=== PATIENT | female | born 1955 | race Two or more races ===

== ENCOUNTER 2018-04-24 12:53 | Inpatient (IN) | payer OTHER ==
[~2018-04-24] VITALS: Ht 154.9 cm; Wt 83.7 kg
[~2018-04-24 12:53] MED LIST: AMLO5TAB4 PO; AZIT500T5 PO; CARV6.252 PO; CEFD300C37 PO; HYDR25TA6 PO; LISI40TA PO; METF500T17 PO
[2018-04-24] MEDS ORDERED: ASPIRIN 81 MG TABLET CHEW ONE (13:19)
--- NOTE | 2018-04-24 13:21 | NUR ---
PT PRESENTS TO ED CODE 250 WITH C/O LEFT SIDED CHEST PRESSURE, INTERIMTTENT X2 DAYS. +SOB, +DIZZINESS, +NAUSEA. PT REPORTS SHE HAS CHRONIC COUGH D/T HX "LUNG PROBLEM". EKG TAKEN ON ARRIVAL BY EDT. SPO2 80% ON ROOM AIR, OXYGEN APPLIED VIA NC AT 4L/MIN. ALL MONITORS IN PLACE. CALL LIGHT IN REACH. DAUGHTER AT BEDSIDE.
[2018-04-24] MEDS ORDERED: ASPIRIN 81 MG TABLET CHEW PO ONE (13:30)
[2018-04-24] MEDS ORDERED: SODIUM CHLORIDE FLUSH 10ML SYR IVF ONE (13:30)
--- NOTE | 2018-04-24 13:35 | NUR ---
REPORT RECEIVED FROM MIGUEL SORENSON. ASSUMED CARE OF PT. PT CURRENTLY RESTING ON GURNEY. NAD NOTED. SKIN PWD. RESP EVEN AND EQAUL. PT DENIES PAIN/NEEDS AT THIS TIME. PT ON CONT BP, CARDIAC AND O2 MONITORS. CALL LIGHT WITHIN REACH. WILL CONT TO MONITOR PT.
--- NOTE | 2018-04-24 13:35 | NUR ---
report given to primary RN Myah at bedside.
[2018-04-24 13:54] LABS: ALBUMIN 3.2 g/dL (3.4-5.0); ANION GAP 5 mmol/L (5-15); CALCIUM 8.6 mg/dL (8.5-10.1); CHLORIDE 103 mmol/L (98-107); CREATININE 0.59 mg/dL (0.55-1.02)
[2018-04-24 13:58] LABS: BASOPHILS # (AUTO) 0.05 x10^3/uL (0-0.1); BASOPHILS % (AUTO) 0 % (0-1); EOSINOPHILS # (AUTO) 0.05 x10^3/uL (0-0.4); EOSINOPHILS % (AUTO) 0 % (1-7); LYMPHOCYTES % (AUTO) 9 % (22-44); MD NO; MEAN CORPUSCULAR HEMOGLOBIN 25.7 pg (27.0-34.8); MEAN CORPUSCULAR VOLUME 82.9 fL (80-100); MEAN PLATELET VOLUME 9.5 fL (7.4-10.4); MONOCYTES # (AUTO) 1.23 x10^3/uL (0.2-0.8); MONOCYTES % (AUTO) 10 % (2-9); NEUTROPHILS # (AUTO) 9.95 x10^3/uL (1.8-6.8); NEUTROPHILS % (AUTO) 80 % (42-75); PLATELET COUNT 282 x10^3/uL (130-400); RED BLOOD COUNT 5.59 x10^6/uL (3.82-5.3); RED CELL DISTRIBUTION WIDTH 15.7 % (9.6-15.2)
--- NOTE | 2018-04-24 14:30 | NUR ---
PT CURRENTLY RESTING ON [employer]. NAD NOTED. PT AO X 4. SKIN PWD. RESP EVEN AND EQAUL. PT AWARE THAT WE ARE WAITING FOR IMAGING RESULTS. PT CURRENTLY DENIES PAIN/NEEDS AT THIS TIME. CALL LIGHT WITHIN REACH. WILL CONT TO MONITOR PT.
[2018-04-24] MEDS ORDERED: OMNIPAQUE 350 MG/ML, 100ML BOTTLE ONE (14:54)
[2018-04-24] MEDS ORDERED: ATOR-2 PO (14:58)
--- NOTE | 2018-04-24 15:41 | NUR ---
PT CURRENTLY RESTING ON GURNEY. NAD NOTED. PT AO X 4. SKIN PWD. RESP EVEN AND EQAUL. PT ABLE TO SPEAK IN FULL 5-7 WORD SENTENCES W/O DIFFICULTY. PT ON CONT BP, CARDIAC AND O2 MONITORS. CALL LIGHT WITHIN REACH. WILL CONT TO MONITOR PT.
[2018-04-24] MEDS ORDERED: FUROSEMIDE 40 MG/4 ML ONE (15:53)
[2018-04-24] MEDS ORDERED: NITROGLYCERIN OINT 2%, 1GM TP ONE ×2 (15:53→16:00)
[2018-04-24] MEDS ORDERED: FUROSEMIDE 40 MG/4 ML IVPush ONE (16:00)
--- NOTE | 2018-04-24 16:11 | NUR ---
PT UP TO RESTROOM. STEADY UPON AMBULATION. PT BACK IN [facility]. PT DENIES PAIN/NEEDS AT THIS TIME. PAMELA FUNG AWARE OF PT'S HTN, WILL WAIT TO SEE IF NITRO HELPS BP PER PAMLEA KIM. PT ON CONT BP, CARDIAC AND O2 MONITORS. CALL LIGHT WITHIN REACH. WILL CONT TO MONITOR PT.
--- NOTE | 2018-04-24 16:45 | NUR ---
BREAK RN NOTE: REPORT TAKEN FROM MIGUEL KNUTSON. PT ASSISTED TO BATHROOM TO VOID, NOW BACK IN BED AND PLACED ON ALL MONITORS. NSR ON PACKER INSULATION. CALL LIGHT IN REACH. AWAITING CARDIAC TELE BED ASSIGNMENT AND TRANSPORT AT THIS TIME.
--- NOTE | 2018-04-24 17:09 | NUR ---
report given to MIGUEL Ulloa. pt awaiting transport to cardiac tele.
[2018-04-24 17:29] VITALS: BP 157/90
[2018-04-24 17:32] LABS: CHOLESTEROL, TOTAL 147 mg/dL (140-239); TRIGLYCERIDES 99 mg/dL (50-200); VLDL CHOLESTEROL 20 mg/dL (0-25)
[2018-04-24 17:35] LABS: CHOL/HDL RATIO 3.5; HDL CHOL % 29 % (28-40); HDL CHOLESTEROL (DIRECT) 42 mg/dL (40-60); LDL CHOLESTEROL,CALCULATED 85 mg/dL (54-169); TROPONIN I 0.034 ng/mL (0.000-0.045)
[2018-04-24 18:28] LABS: HEMOGLOBIN A1C 7.6 % (4.2-6.3)
[2018-04-24 19:35] VITALS: BP 178/89
[2018-04-24] MEDS ORDERED: HYDROCHLOROTHIAZIDE 25 MG TABLET ONE (20:44)
[2018-04-24] MEDS: ACETAMINOPHEN 325 MG TABLET PO PRN (20:53)
[2018-04-24] MEDS: CARVEDILOL 6.25 MG TABLET PO SCH (20:54)
[2018-04-24] MEDS: ATORVASTATIN 80 MG TABLET PO SCH (20:54)
[2018-04-24] MEDS: ENOXAPARIN 40 MG/0.4 ML SQ SCH (20:55)
[2018-04-24 20:56] LABS: TROPONIN I 0.029 ng/mL (0.000-0.045)
[2018-04-24] MEDS ORDERED: HYDROCHLOROTHIAZIDE 25 MG TABLET PO ONE (21:00)
[2018-04-24] MEDS: INSULIN LISPRO 100 UNITS/ML, PEN SQ-INSULIN SCH (21:00)
[2018-04-25 01:09] VITALS: BP 176/103
[2018-04-25 01:31] LABS: TROPONIN I 0.025 ng/mL (0.000-0.045)
[2018-04-25] MEDS ORDERED: hydrALAzine 20 MG/ML, 1ML ONE (01:49)
[2018-04-25] MEDS: hydrALAzine 20 MG/ML, 1ML IV PRN ×2 (02:08→06:37)
[2018-04-25 03:48] VITALS: BP 161/88
[2018-04-25 05:37] LABS: BASOPHILS # (AUTO) 0.04 x10^3/uL (0-0.1); BASOPHILS % (AUTO) 0 % (0-1); EOSINOPHILS # (AUTO) 0.05 x10^3/uL (0-0.4); EOSINOPHILS % (AUTO) 0 % (1-7); LYMPHOCYTES % (AUTO) 6 % (22-44); MD NO; MEAN CORPUSCULAR HEMOGLOBIN 26.9 pg (27.0-34.8); MEAN CORPUSCULAR HGB CONC 31.9 g/dL (32.4-35.8); MEAN PLATELET VOLUME 9.5 fL (7.4-10.4); MONOCYTES # (AUTO) 1.15 x10^3/uL (0.2-0.8); MONOCYTES % (AUTO) 9 % (2-9); NEUTROPHILS # (AUTO) 10.37 x10^3/uL (1.8-6.8); NEUTROPHILS % (AUTO) 84 % (42-75); PLATELET COUNT 251 x10^3/uL (130-400); RED BLOOD COUNT 5.81 x10^6/uL (3.82-5.3); RED CELL DISTRIBUTION WIDTH 15.4 % (9.6-15.2)
[2018-04-25 05:41] LABS: CHLORIDE 99 mmol/L (98-107)
[2018-04-25 05:55] LABS: ANION GAP 4 mmol/L (5-15); CALCIUM 8.7 mg/dL (8.5-10.1); CREATININE 0.58 mg/dL (0.55-1.02)
[2018-04-25 06:20] VITALS: BP 188/92
[2018-04-25] MEDS ORDERED: POTASSIUM CHLORIDE 20 MEQ TAB.ER.PRT PO ONE ×2 (06:30→22:30)
[2018-04-25] MEDS: ASPIRIN 325 MG TABLET PO SCH (06:36)
[2018-04-25] MEDS: INSULIN LISPRO 100 UNITS/ML, PEN SQ-INSULIN SCH ×4 (07:00→21:31)
[2018-04-25] MEDS ORDERED: AMLODIPINE 5 MG TABLET PO SCH (09:00)
[2018-04-25] MEDS ORDERED: HYDROCHLOROTHIAZIDE 25 MG TABLET PO SCH (09:00)
[2018-04-25 09:04] VITALS: BP 174/90
[2018-04-25] MEDS: CARVEDILOL 6.25 MG TABLET PO SCH ×2 (09:13→21:31)
[2018-04-25] MEDS: AMLODIPINE 5 MG TABLET PO SCH (09:14)
[2018-04-25 13:24] VITALS: BP 121/62
[2018-04-25 19:00] VITALS: BP 162/82
[2018-04-25] MEDS: ENOXAPARIN 40 MG/0.4 ML SQ SCH (21:31)
[2018-04-25] MEDS: ATORVASTATIN 80 MG TABLET PO SCH (21:31)
[2018-04-25] MEDS: LOSARTAN 25MG TABLET PO SCH (23:49)
[2018-04-25] MEDS: FUROSEMIDE 20 MG/2 ML IV SCH (23:49)
[2018-04-26] VITALS (7 sets, daily range): BP systolic 127–179; BP diastolic 68–102
[2018-04-26] MEDS: ASPIRIN 325 MG TABLET PO SCH (05:32)
[2018-04-26] MEDS: INSULIN LISPRO 100 UNITS/ML, PEN SQ-INSULIN SCH ×4 (07:00→20:07)
[2018-04-26 07:29] LABS: ANION GAP 2 mmol/L (5-15); CALCIUM 8.7 mg/dL (8.5-10.1); CHLORIDE 99 mmol/L (98-107); CREATININE 0.68 mg/dL (0.55-1.02)
[2018-04-26] MEDS ORDERED: REGADENOSON 0.4 MG/5 ML SYRINGE ONE (09:14)
[2018-04-26] MEDS: CARVEDILOL 6.25 MG TABLET PO SCH ×2 (12:10→20:06)
[2018-04-26] MEDS: LOSARTAN 25MG TABLET PO SCH ×2 (12:10→20:05)
[2018-04-26] MEDS: AMLODIPINE 5 MG TABLET PO SCH (12:12)
[2018-04-26] MEDS: FUROSEMIDE 20 MG/2 ML IV SCH ×2 (12:13→16:36)
[2018-04-26] MEDS ORDERED: POTASSIUM CHLORIDE 20 MEQ TAB.ER.PRT PO ONE (16:00)
[2018-04-26] MEDS ORDERED: GUAIFENESIN 200 MG TABLET PO PRN (16:00)
[2018-04-26] MEDS: ENOXAPARIN 40 MG/0.4 ML SQ SCH (20:05)
[2018-04-26] MEDS: ATORVASTATIN 80 MG TABLET PO SCH (20:06)
[2018-04-26] MEDS: hydrALAzine 20 MG/ML, 1ML IV PRN (21:18)
[2018-04-26] MEDS ORDERED: ALBUTEROL/IPRATROPIUM 2.5MG/0.5MG, 3 ML ONE (23:05)
[2018-04-26] MEDS ORDERED: FUROSEMIDE 40 MG/4 ML IV ONE (23:30)
[2018-04-26] MEDS ORDERED: ALBUTEROL/IPRATROPIUM 2.5MG/0.5MG, 3 ML NPPB PRN (23:30)
[2018-04-27] MEDS ORDERED: CEFTRIAXONE PMX 1GM/50ML 50 ML IV SCH (01:00)
[2018-04-27] MEDS ORDERED: DOXYCYCLINE 100 MG in DEXTROSE 5% 250 ML IV SCH (01:00)
[2018-04-27 01:23] VITALS: BP 158/91
[2018-04-27 01:24] LABS: BASOPHILS # (AUTO) 0.04 x10^3/uL (0-0.1); BASOPHILS % (AUTO) 0 % (0-1); EOSINOPHILS # (AUTO) 0.02 x10^3/uL (0-0.4); EOSINOPHILS % (AUTO) 0 % (1-7); LYMPHOCYTES # (AUTO) 0.61 x10^3/uL (1-3.4); LYMPHOCYTES % (AUTO) 5 % (22-44); MD NO; MEAN CORPUSCULAR HEMOGLOBIN 26.4 pg (27.0-34.8); MEAN CORPUSCULAR HGB CONC 31.7 g/dL (32.4-35.8); MEAN CORPUSCULAR VOLUME 83.2 fL (80-100); MEAN PLATELET VOLUME 9.4 fL (7.4-10.4); MONOCYTES % (AUTO) 7 % (2-9); NEUTROPHILS % (AUTO) 88 % (42-75); PLATELET COUNT 281 x10^3/uL (130-400); RED BLOOD COUNT 6.01 x10^6/uL (3.82-5.3); RED CELL DISTRIBUTION WIDTH 15.6 % (9.6-15.2)
[2018-04-27 01:35] LABS: ALBUMIN 3.3 g/dL (3.4-5.0); ANION GAP 5 mmol/L (5-15); CALCIUM 8.9 mg/dL (8.5-10.1); CHLORIDE 94 mmol/L (98-107)
[2018-04-27] MEDS: hydrALAzine 20 MG/ML, 1ML IV PRN (04:49)
[2018-04-27] MEDS: ASPIRIN 325 MG TABLET PO SCH (04:49)
[2018-04-27 06:48] VITALS: BP 148/73
[2018-04-27] MEDS: INSULIN LISPRO 100 UNITS/ML, PEN SQ-INSULIN SCH ×3 (07:00→23:17)
[2018-04-27] MEDS ORDERED: PIPERACILLIN/TAZO/PMX 3.375GM 50 ML IV SCH (08:00)
[2018-04-27] MEDS: AMLODIPINE 5 MG TABLET PO SCH (09:00)
[2018-04-27] MEDS: CARVEDILOL 6.25 MG TABLET PO SCH ×2 (09:00→19:40)
[2018-04-27] MEDS: LOSARTAN 25MG TABLET PO SCH ×2 (09:00→19:40)
[2018-04-27] MEDS: FUROSEMIDE 20 MG/2 ML IV SCH ×2 (09:07→16:48)
[2018-04-27] MEDS ORDERED: PROPOFOL 100 ML IV ONE (09:32)
[2018-04-27] MEDS ORDERED: BISACODYL 10 MG SUPP PR PRN (10:30)
[2018-04-27] MEDS ORDERED: SENNA/DOCUSATE TABLET NG PRN (10:30)
[2018-04-27] MEDS ORDERED: LIDOCAINE-MPF 1%, 2ML ENDO PRN (10:30)
[2018-04-27] MEDS ORDERED: PHARMACY MAY ADJ FOR RENAL FX MC SCH (10:30)
[2018-04-27] MEDS ORDERED: LACTULOSE 20 GM/30 ML UDC NG PRN (10:30)
[2018-04-27] MEDS ORDERED: SENNOSIDES 8.8 MG/5 ML ORAL SOL NG PRN (10:30)
[2018-04-27] MEDS: FAMOTIDINE 20 MG/2 ML IV SCH ×2 (10:30→22:17)
[2018-04-27] MEDS ORDERED: NOREPINEPHRINE 4 MG in SODIUM CHLORIDE 0.9% 246 ML IV PRN (11:00)
[2018-04-27] MEDS ORDERED: ALBUTEROL/IPRATROPIUM 2.5MG/0.5MG, 3 ML INLINE PRN (12:00)
[2018-04-27] MEDS: PROPOFOL 100 ML IV PRN ×2 (14:26→20:13)
[2018-04-27] MEDS: AMPICILLIN/SULBACTAM 3 GM in SODIUM CHLORIDE 0.9% 100 ML IV SCH ×2 (14:26→20:13)
[2018-04-27 15:16] LABS: TROPONIN I 0.041 ng/mL (0.000-0.045)
[2018-04-27] MEDS: ALBUTEROL/IPRATROPIUM 2.5MG/0.5MG, 3 ML INLINE SCH ×3 (15:20→22:26)
[2018-04-27] MEDS ORDERED: MIDAZOLAM 1 MG/ML, 5ML ONE (17:10)
[2018-04-27] MEDS ORDERED: SUCCINYLCHOLINE 20 MG/ML, 10ML ONE (17:10)
[2018-04-27] MEDS: ACETAMINOPHEN 325 MG TABLET PO PRN (17:52)
[2018-04-27] MEDS: ATORVASTATIN 80 MG TABLET PO SCH (20:14)
[2018-04-27] MEDS: ENOXAPARIN 40 MG/0.4 ML SQ SCH (20:14)
[2018-04-27] MEDS ORDERED: DOCUSATE 50 MG/5 ML, 10ML UDC NG PRN (21:00)
[2018-04-27 21:18] LABS: ALBUMIN 2.7 g/dL (3.4-5.0); ANION GAP 7 mmol/L (5-15); CALCIUM 8.3 mg/dL (8.5-10.1); CHLORIDE 98 mmol/L (98-107)
[2018-04-27 21:22] LABS: ALANINE AMINOTRANSFERASE 15 U/L (12-78); ALKALINE PHOSPHATASE 92 U/L (45-117); BILIRUBIN,TOTAL 1.5 mg/dL (0.2-1.0); CREATININE 1.44 mg/dL (0.55-1.02); TOTAL PROTEIN 6.3 g/dL (6.4-8.2)
[2018-04-27] MEDS ORDERED: POTASSIUM CHLORIDE PMX 100 ML IV ONE (22:00)
[2018-04-27] MEDS ORDERED: MAGNESIUM SULFATE 3 GM in SODIUM CHLORIDE 0.9% 100 ML IV ONE (22:00)
[2018-04-28] MEDS: AMPICILLIN/SULBACTAM 3 GM in SODIUM CHLORIDE 0.9% 100 ML IV SCH ×4 (02:03→21:06)
[2018-04-28] MEDS: ALBUTEROL/IPRATROPIUM 2.5MG/0.5MG, 3 ML INLINE SCH ×6 (02:08→22:30)
[2018-04-28] MEDS: PROPOFOL 100 ML IV PRN ×3 (03:24→23:15)
[2018-04-28 04:00] VITALS: BP 118/58
[2018-04-28] MEDS: INSULIN LISPRO 100 UNITS/ML, PEN SQ-INSULIN SCH ×4 (05:00→22:06)
[2018-04-28 05:11] LABS: MEAN CORPUSCULAR HGB CONC 31.4 g/dL (32.4-35.8); MEAN CORPUSCULAR VOLUME 82.8 fL (80-100); MEAN PLATELET VOLUME 9.9 fL (7.4-10.4); PLATELET COUNT 253 x10^3/uL (130-400); RED BLOOD COUNT 5.46 x10^6/uL (3.82-5.3); RED CELL DISTRIBUTION WIDTH 15.9 % (9.6-15.2)
[2018-04-28 05:18] LABS: ALANINE AMINOTRANSFERASE 15 U/L (12-78); ALBUMIN 2.5 g/dL (3.4-5.0); ANION GAP 8 mmol/L (5-15); CALCIUM 8.6 mg/dL (8.5-10.1); CHLORIDE 98 mmol/L (98-107)
[2018-04-28 05:21] LABS: ALKALINE PHOSPHATASE 92 U/L (45-117); BILIRUBIN,TOTAL 1.4 mg/dL (0.2-1.0); CREATININE 1.28 mg/dL (0.55-1.02); TOTAL PROTEIN 6.1 g/dL (6.4-8.2)
[2018-04-28 05:47] LABS: BASOPHILS # (AUTO) 0.03 x10^3/uL (0-0.1); BASOPHILS % (AUTO) 0 % (0-1); EOSINOPHILS # (AUTO) 0.02 x10^3/uL (0-0.4); EOSINOPHILS % (AUTO) 0 % (1-7); LYMPHOCYTES # (AUTO) 1.68 x10^3/uL (1-3.4); LYMPHOCYTES % (AUTO) 14 % (22-44); MD SCAN; MONOCYTES % (AUTO) 16 % (2-9); NEUTROPHILS # (AUTO) 8.23 x10^3/uL (1.8-6.8); NEUTROPHILS % (AUTO) 69 % (42-75)
[2018-04-28] MEDS: ASPIRIN 325 MG TABLET PO SCH (06:11)
[2018-04-28] MEDS: FAMOTIDINE 20 MG/2 ML IV SCH ×2 (08:19→19:42)
[2018-04-28] MEDS: FUROSEMIDE 20 MG/2 ML IV SCH ×2 (08:19→17:15)
[2018-04-28] MEDS: CARVEDILOL 6.25 MG TABLET PO SCH ×2 (08:19→19:42)
[2018-04-28] MEDS: LOSARTAN 25MG TABLET PO SCH ×2 (08:20→19:42)
[2018-04-28] MEDS: ATORVASTATIN 80 MG TABLET PO SCH (19:42)
[2018-04-28] MEDS: ENOXAPARIN 40 MG/0.4 ML SQ SCH (19:43)
[2018-04-29] MEDS: ALBUTEROL/IPRATROPIUM 2.5MG/0.5MG, 3 ML INLINE SCH ×6 (02:13→22:30)
[2018-04-29] MEDS: AMPICILLIN/SULBACTAM 3 GM in SODIUM CHLORIDE 0.9% 100 ML IV SCH ×4 (03:05→22:05)
[2018-04-29 04:00] VITALS: BP 132/71
[2018-04-29] MEDS: INSULIN LISPRO 100 UNITS/ML, PEN SQ-INSULIN SCH ×4 (05:00→23:00)
[2018-04-29 05:21] LABS: BASOPHILS # (AUTO) 0.04 x10^3/uL (0-0.1); BASOPHILS % (AUTO) 0 % (0-1); EOSINOPHILS # (AUTO) 0.03 x10^3/uL (0-0.4); EOSINOPHILS % (AUTO) 0 % (1-7); LYMPHOCYTES # (AUTO) 1.57 x10^3/uL (1-3.4); LYMPHOCYTES % (AUTO) 13 % (22-44); MD NO; MEAN CORPUSCULAR HEMOGLOBIN 27.4 pg (27.0-34.8); MEAN CORPUSCULAR HGB CONC 32.5 g/dL (32.4-35.8); MEAN CORPUSCULAR VOLUME 84.2 fL (80-100); MEAN PLATELET VOLUME 9.7 fL (7.4-10.4); MONOCYTES # (AUTO) 1.38 x10^3/uL (0.2-0.8); MONOCYTES % (AUTO) 12 % (2-9); NEUTROPHILS # (AUTO) 8.73 x10^3/uL (1.8-6.8); NEUTROPHILS % (AUTO) 74 % (42-75); PLATELET COUNT 272 x10^3/uL (130-400); RED BLOOD COUNT 5.14 x10^6/uL (3.82-5.3); RED CELL DISTRIBUTION WIDTH 16.2 % (9.6-15.2)
[2018-04-29 05:33] LABS: ANION GAP 7 mmol/L (5-15); CALCIUM 8.5 mg/dL (8.5-10.1); CHLORIDE 102 mmol/L (98-107); CREATININE 0.93 mg/dL (0.55-1.02)
[2018-04-29] MEDS: ASPIRIN 325 MG TABLET PO SCH (06:02)
[2018-04-29] MEDS: FAMOTIDINE 20 MG/2 ML IV SCH ×2 (07:44→20:14)
[2018-04-29] MEDS: FUROSEMIDE 20 MG/2 ML IV SCH ×2 (07:44→16:31)
[2018-04-29] MEDS: POTASSIUM CHLORIDE 10% 40 MEQ/30 ML UDC PO SCH ×2 (07:45→20:13)
[2018-04-29] MEDS: LOSARTAN 25MG TABLET PO SCH ×2 (07:45→20:14)
[2018-04-29] MEDS: CARVEDILOL 6.25 MG TABLET PO SCH ×2 (07:46→20:14)
--- NOTE | 2018-04-29 11:12 | NUR ---
TF GOAL: w/ propofol: VITAL HIGH PROTEIN @ 45ML/HR off propofol: VITAL HIGH PROTEIN @ 50ML/HR
[2018-04-29] MEDS: FENTANYL PF 100 MCG/2ML IVPush PRN ×2 (13:42→20:14)
[2018-04-29] MEDS: ATORVASTATIN 80 MG TABLET PO SCH (20:13)
[2018-04-29] MEDS: ENOXAPARIN 40 MG/0.4 ML SQ SCH (20:15)
[2018-04-30] MEDS: ALBUTEROL/IPRATROPIUM 2.5MG/0.5MG, 3 ML INLINE SCH ×6 (02:30→22:30)
[2018-04-30] MEDS: AMPICILLIN/SULBACTAM 3 GM in SODIUM CHLORIDE 0.9% 100 ML IV SCH ×4 (03:26→22:18)
[2018-04-30 04:29] LABS: BASOPHILS # (AUTO) 0.05 x10^3/uL (0-0.1); BASOPHILS % (AUTO) 1 % (0-1); EOSINOPHILS # (AUTO) 0.09 x10^3/uL (0-0.4); EOSINOPHILS % (AUTO) 1 % (1-7); LYMPHOCYTES % (AUTO) 16 % (22-44); MD NO; MEAN CORPUSCULAR HEMOGLOBIN 27.8 pg (27.0-34.8); MEAN CORPUSCULAR HGB CONC 32.8 g/dL (32.4-35.8); MEAN CORPUSCULAR VOLUME 84.9 fL (80-100); MEAN PLATELET VOLUME 9.4 fL (7.4-10.4); MONOCYTES # (AUTO) 1.18 x10^3/uL (0.2-0.8); MONOCYTES % (AUTO) 11 % (2-9); NEUTROPHILS # (AUTO) 7.79 x10^3/uL (1.8-6.8); NEUTROPHILS % (AUTO) 72 % (42-75); PLATELET COUNT 274 x10^3/uL (130-400); RED BLOOD COUNT 4.87 x10^6/uL (3.82-5.3); RED CELL DISTRIBUTION WIDTH 16.4 % (9.6-15.2)
[2018-04-30] MEDS: ASPIRIN 325 MG TABLET PO SCH (04:40)
[2018-04-30 04:42] LABS: ANION GAP 6 mmol/L (5-15); CALCIUM 8.6 mg/dL (8.5-10.1); CHLORIDE 105 mmol/L (98-107); CREATININE 0.78 mg/dL (0.55-1.02); TRIGLYCERIDES 154 mg/dL (50-200)
[2018-04-30 05:00] VITALS: BP 155/80
[2018-04-30] MEDS: INSULIN LISPRO 100 UNITS/ML, PEN SQ-INSULIN SCH ×4 (05:00→22:31)
[2018-04-30] MEDS: POTASSIUM CHLORIDE 10% 40 MEQ/30 ML UDC PO SCH ×2 (07:44→22:18)
[2018-04-30] MEDS: FUROSEMIDE 20 MG/2 ML IV SCH ×2 (07:44→17:11)
[2018-04-30] MEDS: hydrALAzine 20 MG/ML, 1ML IV PRN (08:16)
[2018-04-30] MEDS: LOSARTAN 25MG TABLET PO SCH ×2 (09:04→22:19)
[2018-04-30] MEDS: FAMOTIDINE 20 MG/2 ML IV SCH ×2 (09:05→22:19)
[2018-04-30] MEDS: CARVEDILOL 6.25 MG TABLET PO SCH ×2 (09:05→22:19)
[2018-04-30] MEDS: ENOXAPARIN 40 MG/0.4 ML SQ SCH (22:18)
[2018-04-30] MEDS: ATORVASTATIN 80 MG TABLET PO SCH (22:19)
[2018-05-01] MEDS: ALBUTEROL/IPRATROPIUM 2.5MG/0.5MG, 3 ML INLINE SCH ×2 (02:18→06:30)
[2018-05-01] MEDS: FENTANYL PF 100 MCG/2ML IVPush PRN (03:44)
[2018-05-01] MEDS: AMPICILLIN/SULBACTAM 3 GM in SODIUM CHLORIDE 0.9% 100 ML IV SCH ×4 (03:44→20:45)
[2018-05-01 04:00] VITALS: BP 118/79
[2018-05-01] MEDS: ASPIRIN 325 MG TABLET PO SCH (06:08)
[2018-05-01 06:38] LABS: ANION GAP 5 mmol/L (5-15); CALCIUM 9.1 mg/dL (8.5-10.1); CHLORIDE 108 mmol/L (98-107)
[2018-05-01 06:39] LABS: BASOPHILS # (AUTO) 0.03 x10^3/uL (0-0.1); BASOPHILS % (AUTO) 0 % (0-1); EOSINOPHILS # (AUTO) 0.22 x10^3/uL (0-0.4); EOSINOPHILS % (AUTO) 2 % (1-7); LYMPHOCYTES # (AUTO) 1.73 x10^3/uL (1-3.4); LYMPHOCYTES % (AUTO) 18 % (22-44); MD NO; MEAN CORPUSCULAR HEMOGLOBIN 27.8 pg (27.0-34.8); MEAN CORPUSCULAR HGB CONC 32.6 g/dL (32.4-35.8); MEAN CORPUSCULAR VOLUME 85.3 fL (80-100); MEAN PLATELET VOLUME 9.8 fL (7.4-10.4); MONOCYTES # (AUTO) 1.09 x10^3/uL (0.2-0.8); MONOCYTES % (AUTO) 11 % (2-9); NEUTROPHILS # (AUTO) 6.77 x10^3/uL (1.8-6.8); NEUTROPHILS % (AUTO) 69 % (42-75); PLATELET COUNT 315 x10^3/uL (130-400); RED BLOOD COUNT 4.84 x10^6/uL (3.82-5.3); RED CELL DISTRIBUTION WIDTH 15.9 % (9.6-15.2)
[2018-05-01] MEDS: INSULIN LISPRO 100 UNITS/ML, PEN SQ-INSULIN SCH ×4 (06:44→23:00)
[2018-05-01] MEDS: FUROSEMIDE 20 MG/2 ML IV SCH ×2 (08:13→17:14)
[2018-05-01] MEDS: LOSARTAN 25MG TABLET PO SCH ×2 (09:25→20:44)
[2018-05-01] MEDS: POTASSIUM CHLORIDE 10% 40 MEQ/30 ML UDC PO SCH ×2 (09:25→20:44)
[2018-05-01] MEDS: CARVEDILOL 6.25 MG TABLET PO SCH (09:25)
[2018-05-01] MEDS: FAMOTIDINE 20 MG/2 ML IV SCH ×2 (09:25→20:44)
[2018-05-01] MEDS: METOPROLOL TARTRATE 25 MG TABLET PO SCH ×2 (11:16→17:31)
[2018-05-01] MEDS: VERAPAMIL ER 120MG TABLET.ER PO SCH (11:16)
[2018-05-01] MEDS ORDERED: ALBUTEROL SULFATE 2.5 MG/3 ML NPPB PRN (13:30)
[2018-05-01] MEDS: IPRATROPIUM 0.5 MG/2.5 ML INHA NPPB SCH ×2 (15:00→20:55)
--- NOTE | 2018-05-01 16:58 | NUR ---
REC: Chopped diet with NTL with aspiration precautions; orange sheet with swallow precautions posted in patient's room Addendum: 05/01/18 at 1659 by Makayla LUCIO Amended: Links added.
[2018-05-01] MEDS: ACETAMINOPHEN 325 MG TABLET PO PRN (20:44)
[2018-05-01] MEDS: ATORVASTATIN 80 MG TABLET PO SCH (20:44)
[2018-05-01] MEDS: ENOXAPARIN 40 MG/0.4 ML SQ SCH (20:45)
[2018-05-01] MEDS: hydrALAzine 20 MG/ML, 1ML IV PRN (23:03)
[2018-05-02] MEDS: AMPICILLIN/SULBACTAM 3 GM in SODIUM CHLORIDE 0.9% 100 ML IV SCH ×4 (02:12→20:45)
[2018-05-02] MEDS: METOPROLOL TARTRATE 25 MG TABLET PO SCH (02:12)
[2018-05-02 04:00] VITALS: BP 144/80
[2018-05-02] MEDS: IPRATROPIUM 0.5 MG/2.5 ML INHA NPPB SCH (04:30)
[2018-05-02] MEDS: INSULIN LISPRO 100 UNITS/ML, PEN SQ-INSULIN SCH ×4 (05:00→23:00)
[2018-05-02] MEDS: ASPIRIN 325 MG TABLET PO SCH (05:35)
[2018-05-02] MEDS: hydrALAzine 20 MG/ML, 1ML IV PRN (05:35)
[2018-05-02 06:05] LABS: BASOPHILS % (AUTO) 1 % (0-1); EOSINOPHILS # (AUTO) 0.37 x10^3/uL (0-0.4); EOSINOPHILS % (AUTO) 3 % (1-7); LYMPHOCYTES # (AUTO) 1.86 x10^3/uL (1-3.4); LYMPHOCYTES % (AUTO) 15 % (22-44); MD NO; MEAN CORPUSCULAR HEMOGLOBIN 28.3 pg (27.0-34.8); MEAN CORPUSCULAR HGB CONC 32.9 g/dL (32.4-35.8); MEAN CORPUSCULAR VOLUME 85.8 fL (80-100); MEAN PLATELET VOLUME 9.9 fL (7.4-10.4); MONOCYTES # (AUTO) 0.93 x10^3/uL (0.2-0.8); MONOCYTES % (AUTO) 8 % (2-9); NEUTROPHILS # (AUTO) 8.81 x10^3/uL (1.8-6.8); NEUTROPHILS % (AUTO) 73 % (42-75); PLATELET COUNT 304 x10^3/uL (130-400); RED CELL DISTRIBUTION WIDTH 16.4 % (9.6-15.2)
[2018-05-02 06:07] LABS: ANION GAP 3 mmol/L (5-15); CALCIUM 9.2 mg/dL (8.5-10.1); CHLORIDE 110 mmol/L (98-107); CREATININE 0.72 mg/dL (0.55-1.02)
[2018-05-02] MEDS: FUROSEMIDE 20 MG/2 ML IV SCH ×2 (07:30→17:30)
[2018-05-02] MEDS ORDERED: LISINOPRIL 10 MG TABLET PO SCH (09:00)
[2018-05-02] MEDS: FAMOTIDINE 20 MG/2 ML IV SCH ×2 (09:07→20:44)
[2018-05-02] MEDS: LOSARTAN 25MG TABLET PO SCH (09:08)
[2018-05-02] MEDS: VERAPAMIL ER 120MG TABLET.ER PO SCH (09:08)
[2018-05-02] MEDS: METOPROLOL TARTRATE 50 MG TABLET PO SCH ×2 (09:10→17:30)
[2018-05-02] MEDS ORDERED: ALBUTEROL/IPRATROPIUM 2.5MG/0.5MG, 3 ML NPPB SCH (11:00)
[2018-05-02] MEDS: ALBUTEROL/IPRATROPIUM 2.5MG/0.5MG, 3 ML NPPB SCH ×2 (15:00→21:30)
[2018-05-02] MEDS: LOSARTAN 50MG TABLET PO SCH (20:46)
[2018-05-02] MEDS: ATORVASTATIN 80 MG TABLET PO SCH (20:46)
[2018-05-02] MEDS: ENOXAPARIN 40 MG/0.4 ML SQ SCH (20:47)
[2018-05-03] MEDS: AMPICILLIN/SULBACTAM 3 GM in SODIUM CHLORIDE 0.9% 100 ML IV SCH (03:21)
[2018-05-03] MEDS: ALBUTEROL/IPRATROPIUM 2.5MG/0.5MG, 3 ML NPPB SCH ×4 (03:54→21:20)
[2018-05-03] MEDS: INSULIN LISPRO 100 UNITS/ML, PEN SQ-INSULIN SCH ×4 (04:41→22:49)
[2018-05-03 04:55] LABS: ANION GAP 6 mmol/L (5-15); CALCIUM 8.7 mg/dL (8.5-10.1); CHLORIDE 104 mmol/L (98-107); CREATININE 0.79 mg/dL (0.55-1.02)
[2018-05-03 04:56] LABS: BASOPHILS # (AUTO) 0.05 x10^3/uL (0-0.1); BASOPHILS % (AUTO) 0 % (0-1); EOSINOPHILS # (AUTO) 0.33 x10^3/uL (0-0.4); EOSINOPHILS % (AUTO) 3 % (1-7); LYMPHOCYTES # (AUTO) 2.08 x10^3/uL (1-3.4); LYMPHOCYTES % (AUTO) 18 % (22-44); MD NO; MEAN CORPUSCULAR HEMOGLOBIN 28.4 pg (27.0-34.8); MEAN CORPUSCULAR HGB CONC 32.8 g/dL (32.4-35.8); MEAN CORPUSCULAR VOLUME 86.8 fL (80-100); MONOCYTES # (AUTO) 1.14 x10^3/uL (0.2-0.8); MONOCYTES % (AUTO) 10 % (2-9); NEUTROPHILS # (AUTO) 8.17 x10^3/uL (1.8-6.8); NEUTROPHILS % (AUTO) 69 % (42-75); PLATELET COUNT 308 x10^3/uL (130-400); RED BLOOD COUNT 4.85 x10^6/uL (3.82-5.3); RED CELL DISTRIBUTION WIDTH 16.3 % (9.6-15.2)
[2018-05-03] MEDS: ASPIRIN 325 MG TABLET PO SCH (05:42)
[2018-05-03] MEDS: METOPROLOL TARTRATE 50 MG TABLET PO SCH ×2 (05:43→17:55)
[2018-05-03] MEDS: FUROSEMIDE 20 MG/2 ML IV SCH ×2 (07:55→17:56)
[2018-05-03] MEDS: VERAPAMIL ER 120MG TABLET.ER PO SCH ×2 (07:55→08:04)
[2018-05-03] MEDS: LOSARTAN 50MG TABLET PO SCH ×2 (07:55→22:49)
--- NOTE | 2018-05-03 11:12 | NUR ---
REC THIN/REGULAR; swallow precautions sheet posted at bedside Addendum: 05/03/18 at [address] Amended: Links added.
[2018-05-03 19:51] VITALS: BP 153/83
[2018-05-03] MEDS: ENOXAPARIN 40 MG/0.4 ML SQ SCH (22:49)
[2018-05-03] MEDS: ATORVASTATIN 80 MG TABLET PO SCH (22:49)
[2018-05-04 01:23] VITALS: BP 155/78
[2018-05-04] MEDS: ALBUTEROL/IPRATROPIUM 2.5MG/0.5MG, 3 ML NPPB SCH ×4 (03:56→21:00)
[2018-05-04 04:39] LABS: BASOPHILS # (AUTO) 0.08 x10^3/uL (0-0.1); BASOPHILS % (AUTO) 1 % (0-1); EOSINOPHILS # (AUTO) 0.51 x10^3/uL (0-0.4); EOSINOPHILS % (AUTO) 4 % (1-7); LYMPHOCYTES # (AUTO) 2.05 x10^3/uL (1-3.4); LYMPHOCYTES % (AUTO) 18 % (22-44); MD NO; MEAN CORPUSCULAR HEMOGLOBIN 26.6 pg (27.0-34.8); MEAN CORPUSCULAR HGB CONC 31.5 g/dL (32.4-35.8); MEAN CORPUSCULAR VOLUME 84.2 fL (80-100); MEAN PLATELET VOLUME 10.2 fL (7.4-10.4); MONOCYTES # (AUTO) 1.05 x10^3/uL (0.2-0.8); MONOCYTES % (AUTO) 9 % (2-9); NEUTROPHILS # (AUTO) 7.88 x10^3/uL (1.8-6.8); NEUTROPHILS % (AUTO) 68 % (42-75); PLATELET COUNT 309 x10^3/uL (130-400); RED BLOOD COUNT 5.59 x10^6/uL (3.82-5.3); RED CELL DISTRIBUTION WIDTH 15.9 % (9.6-15.2)
[2018-05-04 04:51] LABS: CHLORIDE 102 mmol/L (98-107)
[2018-05-04 05:00] LABS: ANION GAP 3 mmol/L (5-15); CALCIUM 9.1 mg/dL (8.5-10.1); CREATININE 0.76 mg/dL (0.55-1.02)
[2018-05-04] MEDS: INSULIN LISPRO 100 UNITS/ML, PEN SQ-INSULIN SCH ×4 (05:00→20:49)
[2018-05-04] MEDS: METOPROLOL TARTRATE 50 MG TABLET PO SCH ×2 (05:47→19:10)
[2018-05-04] MEDS: ASPIRIN 325 MG TABLET PO SCH (05:47)
[2018-05-04 07:25] VITALS: BP 142/84
[2018-05-04] MEDS: FUROSEMIDE 20 MG/2 ML IV SCH (09:06)
[2018-05-04] MEDS: LOSARTAN 50MG TABLET PO SCH ×2 (09:07→20:44)
[2018-05-04] MEDS: VERAPAMIL ER 120MG TABLET.ER PO SCH (09:07)
[2018-05-04 14:30] VITALS: BP 128/77
[2018-05-04] MEDS: POTASSIUM CHLORIDE 20 MEQ TAB.ER.PRT PO SCH (17:41)
[2018-05-04] MEDS: FUROSEMIDE 40 MG TABLET PO SCH (17:41)
[2018-05-04] MEDS: ATORVASTATIN 80 MG TABLET PO SCH (20:44)
[2018-05-04] MEDS: ENOXAPARIN 40 MG/0.4 ML SQ SCH (20:44)
[2018-05-04 21:28] VITALS: BP 154/85
[2018-05-05 00:27] VITALS: BP 143/81
[2018-05-05] MEDS: ALBUTEROL/IPRATROPIUM 2.5MG/0.5MG, 3 ML NPPB SCH ×4 (03:19→21:00)
[2018-05-05 04:00] LABS: BASOPHILS # (AUTO) 0.05 x10^3/uL (0-0.1); BASOPHILS % (AUTO) 1 % (0-1); EOSINOPHILS # (AUTO) 0.39 x10^3/uL (0-0.4); EOSINOPHILS % (AUTO) 3 % (1-7); LYMPHOCYTES # (AUTO) 2.53 x10^3/uL (1-3.4); LYMPHOCYTES % (AUTO) 22 % (22-44); MD NO; MEAN CORPUSCULAR HEMOGLOBIN 27.7 pg (27.0-34.8); MEAN CORPUSCULAR HGB CONC 32.4 g/dL (32.4-35.8); MEAN CORPUSCULAR VOLUME 85.5 fL (80-100); MEAN PLATELET VOLUME 10.4 fL (7.4-10.4); MONOCYTES # (AUTO) 1.05 x10^3/uL (0.2-0.8); MONOCYTES % (AUTO) 9 % (2-9); NEUTROPHILS # (AUTO) 7.33 x10^3/uL (1.8-6.8); NEUTROPHILS % (AUTO) 65 % (42-75); PLATELET COUNT 276 x10^3/uL (130-400); RED BLOOD COUNT 5.27 x10^6/uL (3.82-5.3); RED CELL DISTRIBUTION WIDTH 15.9 % (9.6-15.2)
[2018-05-05 04:11] LABS: ALBUMIN 2.9 g/dL (3.4-5.0); ANION GAP 6 mmol/L (5-15); CHLORIDE 102 mmol/L (98-107)
[2018-05-05 04:16] LABS: ALANINE AMINOTRANSFERASE 49 U/L (12-78); ALKALINE PHOSPHATASE 116 U/L (45-117); BILIRUBIN,TOTAL 0.8 mg/dL (0.2-1.0); CREATININE 0.71 mg/dL (0.55-1.02); TOTAL PROTEIN 6.9 g/dL (6.4-8.2)
[2018-05-05] MEDS: ASPIRIN 325 MG TABLET PO SCH (06:10)
[2018-05-05] MEDS: METOPROLOL TARTRATE 50 MG TABLET PO SCH ×2 (06:10→18:13)
[2018-05-05] MEDS: INSULIN LISPRO 100 UNITS/ML, PEN SQ-INSULIN SCH ×7 (07:00→22:21)
[2018-05-05 07:18] VITALS: BP 122/70
[2018-05-05] MEDS: FUROSEMIDE 40 MG TABLET PO SCH ×2 (08:24→18:13)
[2018-05-05] MEDS: POTASSIUM CHLORIDE 20 MEQ TAB.ER.PRT PO SCH ×2 (08:24→18:13)
[2018-05-05] MEDS: VERAPAMIL ER 120MG TABLET.ER PO SCH (08:24)
[2018-05-05] MEDS: LOSARTAN 50MG TABLET PO SCH ×2 (08:24→22:20)
[2018-05-05] MEDS ORDERED: POTASSIUM CHLORIDE 20 MEQ TAB.ER.PRT PO ONE (11:30)
[2018-05-05] MEDS: ACETAMINOPHEN 325 MG TABLET PO PRN (14:48)
[2018-05-05 15:55] VITALS: BP 152/78
[2018-05-05 19:34] VITALS: BP 143/77
[2018-05-05] MEDS ORDERED: ALBUTEROL/IPRATROPIUM 2.5MG/0.5MG, 3 ML NPPB PRN (21:30)
[2018-05-05] MEDS: ENOXAPARIN 40 MG/0.4 ML SQ SCH (22:20)
[2018-05-05] MEDS: ATORVASTATIN 80 MG TABLET PO SCH (22:20)
[2018-05-06 01:34] VITALS: BP 153/84
[2018-05-06] MEDS: METOPROLOL TARTRATE 50 MG TABLET PO SCH ×2 (05:29→17:26)
[2018-05-06] MEDS: ASPIRIN 325 MG TABLET PO SCH (05:30)
[2018-05-06 05:51] LABS: BASOPHILS # (AUTO) 0.05 x10^3/uL (0-0.1); BASOPHILS % (AUTO) 1 % (0-1); EOSINOPHILS # (AUTO) 0.35 x10^3/uL (0-0.4); EOSINOPHILS % (AUTO) 4 % (1-7); LYMPHOCYTES # (AUTO) 1.94 x10^3/uL (1-3.4); LYMPHOCYTES % (AUTO) 21 % (22-44); MD NO; MEAN CORPUSCULAR HEMOGLOBIN 27.6 pg (27.0-34.8); MEAN CORPUSCULAR HGB CONC 32.5 g/dL (32.4-35.8); MEAN PLATELET VOLUME 10.2 fL (7.4-10.4); MONOCYTES # (AUTO) 0.93 x10^3/uL (0.2-0.8); MONOCYTES % (AUTO) 10 % (2-9); NEUTROPHILS # (AUTO) 5.84 x10^3/uL (1.8-6.8); NEUTROPHILS % (AUTO) 64 % (42-75); PLATELET COUNT 263 x10^3/uL (130-400); RED BLOOD COUNT 5.15 x10^6/uL (3.82-5.3); RED CELL DISTRIBUTION WIDTH 15.7 % (9.6-15.2)
[2018-05-06 05:53] LABS: ANION GAP 4 mmol/L (5-15); CALCIUM 8.8 mg/dL (8.5-10.1); CHLORIDE 107 mmol/L (98-107)
[2018-05-06 05:56] LABS: CREATININE 0.62 mg/dL (0.55-1.02)
[2018-05-06 07:37] VITALS: BP 147/74
[2018-05-06] MEDS: INSULIN LISPRO 100 UNITS/ML, PEN SQ-INSULIN SCH ×3 (08:02→16:55)
[2018-05-06] MEDS: LOSARTAN 50MG TABLET PO SCH (10:07)
[2018-05-06] MEDS: FUROSEMIDE 40 MG TABLET PO SCH ×2 (10:07→17:25)
[2018-05-06] MEDS: POTASSIUM CHLORIDE 20 MEQ TAB.ER.PRT PO SCH ×2 (10:08→17:26)
[2018-05-06] MEDS: VERAPAMIL ER 120MG TABLET.ER PO SCH (10:08)
[2018-05-06 13:51] VITALS: BP 176/81
[2018-05-06] MEDS ORDERED: ASPI325T17 PO (17:39)
[2018-05-06] MEDS ORDERED: METO50TA82 PO (17:39)
[2018-05-06] MEDS ORDERED: POTA20TA6 PO (17:39)
[2018-05-06] MEDS ORDERED: LOSA50TA2 PO (17:39)
[2018-05-06] MEDS ORDERED: FURO40TA6 PO (17:39)
[2018-05-06] MEDS ORDERED: VERA120T8 PO (17:39)
== END 2018-05-06 20:42 | disposition home or self-care (01) | DRG 208 ==
LOC: ED 15:37 → EDIP 15:38 → ED 15:55 → 5SO 17:19 → CCU 04-27 08:17 → 5SO 05-03 16:52
PROVIDERS: ADMIT Hospitalist; ATTEND Hospitalist
PROC: 0BH17EZ Insertion of Endotracheal Airway into Trachea, Via Natural or Artificial Opening (ICD-10-PCS; principal; 2018-04-27)
PROC: 5A1945Z Respiratory Ventilation, 24-96 Consecutive Hours (ICD-10-PCS; 2018-04-27)
PROC: 0B9J8ZX Drainage of Left Lower Lung Lobe, Via Natural or Artificial Opening Endoscopic, Diagnostic (ICD-10-PCS; 2018-04-27)
PROC: 02HV33Z Insertion of Infusion Device into Superior Vena Cava, Percutaneous Approach (ICD-10-PCS; 2018-04-27)
PROC: B548ZZA Ultrasonography of Superior Vena Cava, Guidance (ICD-10-PCS; 2018-04-27)
DX: J96.21 Acute and chronic respiratory failure with hypoxia (principal); I50.33 Acute on chronic diastolic (congestive) heart failure; G92 Toxic encephalopathy; J18.9 Pneumonia, unspecified organism; I42.1 Obstructive hypertrophic cardiomyopathy; J98.11 Atelectasis; I11.0 Hypertensive heart disease with heart failure; I27.20 Pulmonary hypertension, unspecified; G47.33 Obstructive sleep apnea (adult) (pediatric); T40.605A Adverse effect of unspecified narcotics, initial encounter; E66.9 Obesity, unspecified; E11.9 Type 2 diabetes mellitus without complications; E78.00 Pure hypercholesterolemia, unspecified; E78.5 Hyperlipidemia, unspecified; E87.6 Hypokalemia; J84.10 Pulmonary fibrosis, unspecified; Z79.4 Long term (current) use of insulin; Z79.82 Long term (current) use of aspirin; Z79.899 Other long term (current) drug therapy; Z86.73 Personal history of transient ischemic attack (TIA), and cerebral infarction without residual deficits; Z87.891 Personal history of nicotine dependence; Y92.89 Other specified places as the place of occurrence of the external cause; Z68.34 Body mass index [BMI] 34.0-34.9, adult
CPT/HCPCS: 36415; 36600; 99285; J3490; J7620; J7644; 36573; 71045; 71275; 78452; 80048; 80053; 80061; 82040; 82533; 82803; 82962; 83036; 83605; 83735; 83880; 84100; 84443; 84478; 84484; 85025; 87015; 87040; 87070; 87081; 87102; 87116; 87205; 87206; 88108; 88112; 88305; 88312; 88341; 88342; 93005; 93017; 93306; 94002; 94003; 94150; 94640; 96374; G0378; J0295; J0696; J1650; J1940; J2250; J2704; J2785; J3010; J3475; J3480; J7060; Q9967; A9502; C1751; C9898; J0330; J0360; J1815; J7050

== ENCOUNTER 2019-03-08 13:15 | Inpatient (IN) | payer OTHER ==
[~2019-03-08] VITALS: Ht 154.9 cm; Wt 84.8 kg
[~2019-03-08 13:15] MED LIST changes: +ASPI325T17 PO; +ATOR-2 PO; +AZIT500T10 PO; -AZIT500T5 PO; +FURO40TA6 PO; +LOSA50TA2 PO; +METO50TA82 PO; +POTA20TA6 PO; +VERA120T8 PO
[2019-03-08] MEDS ORDERED: SODIUM CHLORIDE FLUSH 10ML SYR IVF ONE (13:30)
--- NOTE | 2019-03-08 13:34 | NUR ---
bettina del angel in room for eval. pt placed on pacer pads. denies taking more verapamil than usual. heart rate sinus low 60s. a&ox4 gcs 15. family at bedside. report to [place]. as
[2019-03-08 14:11] LABS: BASOPHILS % (AUTO) 0 % (0-1); EOSINOPHILS # (AUTO) 0.06 x10^3/uL (0-0.4); EOSINOPHILS % (AUTO) 0 % (1-7); LYMPHOCYTES # (AUTO) 1.08 x10^3/uL (1-3.4); LYMPHOCYTES % (AUTO) 8 % (22-44); MD NO; MEAN CORPUSCULAR HEMOGLOBIN 29.2 pg (27.0-34.8); MEAN CORPUSCULAR HGB CONC 32.2 g/dL (32.4-35.8); MEAN CORPUSCULAR VOLUME 90.6 fL (80-100); MEAN PLATELET VOLUME 8.9 fL (7.4-10.4); MONOCYTES # (AUTO) 1.11 x10^3/uL (0.2-0.8); MONOCYTES % (AUTO) 8 % (2-9); NEUTROPHILS # (AUTO) 11.91 x10^3/uL (1.8-6.8); NEUTROPHILS % (AUTO) 84 % (42-75); PLATELET COUNT 320 x10^3/uL (130-400); RED BLOOD COUNT 4.74 x10^6/uL (3.82-5.3); RED CELL DISTRIBUTION WIDTH 14.6 % (9.6-15.2)
[2019-03-08 14:15] LABS: ALBUMIN 3.2 g/dL (3.4-5.0); ANION GAP 8 mmol/L (5-15); CALCIUM 8.2 mg/dL (8.5-10.1); CHLORIDE 107 mmol/L (98-107)
[2019-03-08 14:20] LABS: ALANINE AMINOTRANSFERASE 24 U/L (12-78); ALKALINE PHOSPHATASE 117 U/L (45-117); CREATININE 1.17 mg/dL (0.55-1.02); TOTAL PROTEIN 6.9 g/dL (6.4-8.2); TROPONIN I 0.018 ng/mL (0.000-0.045)
[2019-03-08] MEDS ORDERED: NITROGLYCERIN 0.4 MG/SPRAY SL PRN (15:30)
[2019-03-08] MEDS ORDERED: NITROGLYCERIN 0.4 MG BOTTLE (25 TABS) SL PRN (15:30)
[2019-03-08] MEDS ORDERED: ACETAMINOPHEN 325 MG TABLET PO PRN (15:30)
[2019-03-08] MEDS ORDERED: ONDANSETRON 2MG/ML, 2ML IVPush PRN (15:30)
[2019-03-08] MEDS ORDERED: ONDANSETRON ODT 4 MG PO PRN (15:30)
[2019-03-08] MEDS ORDERED: GLUCAGON 1 MG IM PRN (15:30)
[2019-03-08] MEDS ORDERED: DEXTROSE 50%, 50ML SYRINGE IVPush PRN (15:30)
[2019-03-08] MEDS ORDERED: DEXTROSE 4 GM TAB.CHEW PO PRN (15:30)
[2019-03-08] MEDS ORDERED: hydrALAzine 20 MG/ML, 1ML IVPush PRN (15:30)
[2019-03-08] MEDS: INSULIN LISPRO 100 UNITS/ML, PEN SQ-INSULIN SCH ×2 (16:00→21:00)
--- NOTE | 2019-03-08 16:43 | NUR ---
PATIENT HAD BOWEL MOVEMENT. PATIENT ABLE TO STAND AND CLEAN SELF. TOLERATED WELL. PATIENT REQUESTED CLOTHES, PANTS AND UNDERWEAR BE THROWN AWAY DAUGHTER AT BEDSIDE DURING REQUEST. PATIENT'S WISHES UPHELD. PATIENT TOELRATED STANDING WELL, DENIES ANY DIZZINESS. HEART RATE LYING 68, HEART RATE SITTING 71, HEART RATE 75.
[2019-03-08] MEDS: ENOXAPARIN 40 MG/0.4 ML SQ SCH (17:49)
[2019-03-08 17:58] VITALS: BP 152/75
[2019-03-08 19:19] LABS: TROPONIN I 0.015 ng/mL (0.000-0.045)
[2019-03-08 20:40] VITALS: BP 178/91
[2019-03-08 20:44] VITALS: BP 184/94
[2019-03-08 20:45] VITALS: BP 187/103
[2019-03-08] MEDS: ATORVASTATIN 80 MG TABLET PO SCH (22:04)
[2019-03-08] MEDS: SODIUM CHLORIDE FLUSH 10ML SYR IVF SCH (22:04)
[2019-03-08 22:49] VITALS: BP 130/76
[2019-03-08] MEDS: BENZONATATE 100 MG CAPSULE PO PRN (22:51)
[2019-03-09] VITALS (14 sets, daily range): BP systolic 153–204; BP diastolic 77–112
[2019-03-09 04:46] LABS: BASOPHILS # (AUTO) 0.03 x10^3/uL (0-0.1); BASOPHILS % (AUTO) 0 % (0-1); EOSINOPHILS # (AUTO) 0.04 x10^3/uL (0-0.4); EOSINOPHILS % (AUTO) 1 % (1-7); LYMPHOCYTES # (AUTO) 1.26 x10^3/uL (1-3.4); LYMPHOCYTES % (AUTO) 15 % (22-44); MD NO; MEAN CORPUSCULAR HEMOGLOBIN 29.3 pg (27.0-34.8); MEAN CORPUSCULAR HGB CONC 32.4 g/dL (32.4-35.8); MEAN CORPUSCULAR VOLUME 90.4 fL (80-100); MEAN PLATELET VOLUME 9.1 fL (7.4-10.4); MONOCYTES # (AUTO) 0.92 x10^3/uL (0.2-0.8); MONOCYTES % (AUTO) 11 % (2-9); NEUTROPHILS % (AUTO) 73 % (42-75); PLATELET COUNT 287 x10^3/uL (130-400); RED CELL DISTRIBUTION WIDTH 14.6 % (9.6-15.2)
[2019-03-09 04:53] LABS: ANION GAP 4 mmol/L (5-15); CALCIUM 8.4 mg/dL (8.5-10.1); CHLORIDE 108 mmol/L (98-107)
[2019-03-09 05:05] LABS: CREATININE 0.69 mg/dL (0.55-1.02)
[2019-03-09] MEDS: ASPIRIN 325 MG TABLET PO SCH (05:16)
[2019-03-09] MEDS: INSULIN LISPRO 100 UNITS/ML, PEN SQ-INSULIN SCH ×4 (06:59→21:00)
[2019-03-09] MEDS: LOSARTAN 50MG TABLET PO SCH ×2 (08:27→21:24)
[2019-03-09] MEDS: FUROSEMIDE 40 MG TABLET PO SCH ×2 (08:28→16:54)
[2019-03-09] MEDS: SODIUM CHLORIDE FLUSH 10ML SYR IVF SCH ×2 (08:28→21:24)
[2019-03-09] MEDS: VERAPAMIL ER 120MG TABLET.ER PO SCH (10:08)
[2019-03-09] MEDS: BENZONATATE 100 MG CAPSULE PO PRN ×2 (10:08→16:54)
[2019-03-09] MEDS: ENOXAPARIN 40 MG/0.4 ML SQ SCH (16:54)
[2019-03-09] MEDS: ATORVASTATIN 80 MG TABLET PO SCH (21:23)
[2019-03-10] VITALS (13 sets, daily range): BP systolic 159–193; BP diastolic 73–100
[2019-03-10] MEDS: ASPIRIN 325 MG TABLET PO SCH (05:24)
[2019-03-10] MEDS ORDERED: METOPROLOL TARTRATE 50 MG TAB PO SCH (07:00)
[2019-03-10] MEDS: INSULIN LISPRO 100 UNITS/ML, PEN SQ-INSULIN SCH ×4 (08:15→20:26)
[2019-03-10] MEDS: LOSARTAN 50MG TABLET PO SCH ×2 (08:31→20:23)
[2019-03-10] MEDS: VERAPAMIL ER 120MG TABLET.ER PO SCH (08:31)
[2019-03-10] MEDS: FUROSEMIDE 40 MG TABLET PO SCH ×2 (08:32→17:18)
[2019-03-10] MEDS: SODIUM CHLORIDE FLUSH 10ML SYR IVF SCH ×2 (08:32→20:23)
[2019-03-10 10:47] LABS: BASOPHILS # (AUTO) 0.03 x10^3/uL (0-0.1); BASOPHILS % (AUTO) 0 % (0-1); EOSINOPHILS # (AUTO) 0.02 x10^3/uL (0-0.4); EOSINOPHILS % (AUTO) 0 % (1-7); LYMPHOCYTES # (AUTO) 1.12 x10^3/uL (1-3.4); LYMPHOCYTES % (AUTO) 16 % (22-44); MD NO; MEAN CORPUSCULAR HEMOGLOBIN 29.3 pg (27.0-34.8); MEAN CORPUSCULAR HGB CONC 32.6 g/dL (32.4-35.8); MEAN PLATELET VOLUME 9.1 fL (7.4-10.4); MONOCYTES # (AUTO) 0.79 x10^3/uL (0.2-0.8); MONOCYTES % (AUTO) 11 % (2-9); NEUTROPHILS # (AUTO) 5.11 x10^3/uL (1.8-6.8); NEUTROPHILS % (AUTO) 72 % (42-75); PLATELET COUNT 291 x10^3/uL (130-400); RED BLOOD COUNT 4.93 x10^6/uL (3.82-5.3); RED CELL DISTRIBUTION WIDTH 14.2 % (9.6-15.2)
[2019-03-10 10:58] LABS: ANION GAP 4 mmol/L (5-15); CALCIUM 8.4 mg/dL (8.5-10.1); CHLORIDE 103 mmol/L (98-107); CREATININE 0.77 mg/dL (0.55-1.02)
[2019-03-10] MEDS ORDERED: POTASSIUM CHLORIDE 20 MEQ TAB.ER.PRT PO ONE ×2 (11:30→13:30)
[2019-03-10] MEDS: CEFTRIAXONE PMX 1GM/50ML 50 ML IV SCH (11:36)
[2019-03-10 12:10] LABS: MICROSCOPIC AUTO
[2019-03-10 12:13] LABS: CULTURE INDICATED? NO
[2019-03-10 12:26] LABS: RAPID INFLUENZA A Negative (Negative); RAPID INFLUENZA B Negative (Negative)
[2019-03-10] MEDS: DOXYCYCLINE 100 MG in DEXTROSE 5% 250 ML IV SCH (12:31)
[2019-03-10] MEDS: METOPROLOL TARTRATE 50 MG TAB PO SCH (17:18)
[2019-03-10] MEDS: ENOXAPARIN 40 MG/0.4 ML SQ SCH (17:18)
[2019-03-10] MEDS: ATORVASTATIN 80 MG TABLET PO SCH (20:23)
[2019-03-10] MEDS: BENZONATATE 100 MG CAPSULE PO PRN (20:55)
[2019-03-11] VITALS (10 sets, daily range): BP systolic 144–174; BP diastolic 74–95
[2019-03-11] MEDS: CEFTRIAXONE PMX 1GM/50ML 50 ML IV SCH ×2 (00:07→11:56)
[2019-03-11] MEDS: DOXYCYCLINE 100 MG in DEXTROSE 5% 250 ML IV SCH ×2 (01:03→12:41)
[2019-03-11] MEDS: METOPROLOL TARTRATE 50 MG TAB PO SCH ×2 (05:03→18:14)
[2019-03-11] MEDS: ASPIRIN 325 MG TABLET PO SCH (05:03)
[2019-03-11] MEDS: INSULIN LISPRO 100 UNITS/ML, PEN SQ-INSULIN SCH ×4 (07:48→21:28)
[2019-03-11 08:30] LABS: BASOPHILS # (AUTO) 0.03 x10^3/uL (0-0.1); BASOPHILS % (AUTO) 1 % (0-1); EOSINOPHILS # (AUTO) 0.05 x10^3/uL (0-0.4); EOSINOPHILS % (AUTO) 1 % (1-7); LYMPHOCYTES # (AUTO) 1.51 x10^3/uL (1-3.4); LYMPHOCYTES % (AUTO) 25 % (22-44); MD NO; MEAN CORPUSCULAR HEMOGLOBIN 29.4 pg (27.0-34.8); MEAN CORPUSCULAR HGB CONC 32.4 g/dL (32.4-35.8); MEAN CORPUSCULAR VOLUME 90.7 fL (80-100); MEAN PLATELET VOLUME 8.6 fL (7.4-10.4); MONOCYTES # (AUTO) 1.01 x10^3/uL (0.2-0.8); MONOCYTES % (AUTO) 17 % (2-9); NEUTROPHILS # (AUTO) 3.43 x10^3/uL (1.8-6.8); NEUTROPHILS % (AUTO) 57 % (42-75); PLATELET COUNT 301 x10^3/uL (130-400); RED BLOOD COUNT 4.98 x10^6/uL (3.82-5.3)
[2019-03-11] MEDS: FUROSEMIDE 40 MG TABLET PO SCH ×2 (08:39→16:50)
[2019-03-11] MEDS: SODIUM CHLORIDE FLUSH 10ML SYR IVF SCH ×2 (08:39→20:19)
[2019-03-11] MEDS: LOSARTAN 50MG TABLET PO SCH ×2 (08:39→20:19)
[2019-03-11] MEDS: VERAPAMIL ER 120MG TABLET.ER PO SCH (08:40)
[2019-03-11 08:43] LABS: ANION GAP 7 mmol/L (5-15); CALCIUM 8.6 mg/dL (8.5-10.1); CHLORIDE 102 mmol/L (98-107); CREATININE 0.78 mg/dL (0.55-1.02)
[2019-03-11] MEDS: ENOXAPARIN 40 MG/0.4 ML SQ SCH (16:52)
[2019-03-11] MEDS: ATORVASTATIN 80 MG TABLET PO SCH (20:18)
[2019-03-11] MEDS: BENZONATATE 100 MG CAPSULE PO PRN (22:45)
[2019-03-12] MEDS: CEFTRIAXONE PMX 1GM/50ML 50 ML IV SCH ×2 (00:03→12:00)
[2019-03-12 00:52] VITALS: BP 169/90
[2019-03-12] MEDS: DOXYCYCLINE 100 MG in DEXTROSE 5% 250 ML IV SCH ×2 (00:56→12:57)
[2019-03-12 05:43] VITALS: BP 151/81
[2019-03-12] MEDS: ASPIRIN 325 MG TABLET PO SCH (05:55)
[2019-03-12] MEDS: METOPROLOL TARTRATE 50 MG TAB PO SCH (05:55)
[2019-03-12] MEDS: INSULIN LISPRO 100 UNITS/ML, PEN SQ-INSULIN SCH ×2 (07:50→11:00)
[2019-03-12] MEDS: VERAPAMIL ER 120MG TABLET.ER PO SCH (08:09)
[2019-03-12] MEDS: SODIUM CHLORIDE FLUSH 10ML SYR IVF SCH (08:10)
[2019-03-12] MEDS: FUROSEMIDE 40 MG TABLET PO SCH (08:10)
[2019-03-12] MEDS: LOSARTAN 50MG TABLET PO SCH (08:11)
[2019-03-12] MEDS: BENZONATATE 100 MG CAPSULE PO PRN (08:11)
[2019-03-12 08:35] VITALS: BP 151/91
[2019-03-12 11:27] VITALS: BP 139/79
[2019-03-12] MEDS ORDERED: CEFD300C37 PO (12:19)
[2019-03-12] MEDS ORDERED: DOXY100T PO (12:19)
[2019-03-12] MEDS ORDERED: HYDR-3343 PO (12:19)
[2019-03-12 13:40] VITALS: BP 161/88
== END 2019-03-12 16:30 | disposition home or self-care (01) | DRG 73 ==
LOC: ED 14:54 → INTOOBSV 14:55 → EDIP 14:55 → ED 14:55 → 5SO 17:11 → OBSVTOIN 03-12 10:45 → DCLOUNGE 03-12 16:24
PROVIDERS: ADMIT Internal Medicine; ATTEND Internal Medicine
DX: G90.8 Other disorders of autonomic nervous system (principal); N17.0 Acute kidney failure with tubular necrosis; J96.11 Chronic respiratory failure with hypoxia; I50.32 Chronic diastolic (congestive) heart failure; I42.2 Other hypertrophic cardiomyopathy; Z79.899 Other long term (current) drug therapy; I16.0 Hypertensive urgency; I11.0 Hypertensive heart disease with heart failure; E78.5 Hyperlipidemia, unspecified; I44.0 Atrioventricular block, first degree; E11.9 Type 2 diabetes mellitus without complications; G47.33 Obstructive sleep apnea (adult) (pediatric); Z99.81 Dependence on supplemental oxygen; E66.9 Obesity, unspecified; I25.10 Atherosclerotic heart disease of native coronary artery without angina pectoris; E87.6 Hypokalemia; D72.829 Elevated white blood cell count, unspecified; T41.5X5A Adverse effect of therapeutic gases, initial encounter; Z86.73 Personal history of transient ischemic attack (TIA), and cerebral infarction without residual deficits; Z87.01 Personal history of pneumonia (recurrent); Z91.19 Patient's noncompliance with other medical treatment and regimen; Y92.89 Other specified places as the place of occurrence of the external cause
CPT/HCPCS: 36415; 71045; 80048; 80053; 81001; 82962; 83735; 83880; 84145; 84443; 84484; 85025; 87040; 87400; 93005; 93306; 96372; 96374; G0378; J0696; J1650; J7060; J0360; J1815

== ENCOUNTER 2020-02-26 14:42 | Emergency (ER) | payer BC, OTHER ==
[~2020-02-26] VITALS: Ht 154.9 cm; Wt 86.0 kg
[~2020-02-26 14:42] MED LIST changes: +DOXY100T PO; +HYDR-3343 PO
--- NOTE | 2020-02-26 14:47 | NUR ---
PROPERTY ASSISTANT NOTE: EKG DONE IN TRIAGE, REVIEWED BY EDMD.
--- NOTE | 2020-02-26 15:16 | NUR ---
Pt to and from the bathroom, urine sample.
--- NOTE | 2020-02-26 15:18 | NUR ---
friend please call if patient needs a ride [phone]
[2020-02-26] MEDS ORDERED: ONDANSETRON 2MG/ML, 2ML ONE (15:26)
[2020-02-26] MEDS ORDERED: FAMOTIDINE 20 MG/2 ML ONE (15:26)
[2020-02-26] MEDS ORDERED: SODIUM CHLORIDE FLUSH 10ML SYR IVF ONE (15:30)
[2020-02-26] MEDS ORDERED: FAMOTIDINE 20 MG/2 ML IVPush ONE (15:30)
[2020-02-26] MEDS ORDERED: SODIUM CHLORIDE 0.9% 1,000ML IVBOLUS ONE (15:30)
[2020-02-26] MEDS ORDERED: ONDANSETRON 2MG/ML, 2ML IVPush ONE (15:30)
--- NOTE | 2020-02-26 15:32 | NUR ---
IV started pt medicated. on library monitor. pt going away to xray.
[2020-02-26 15:40] LABS: MICROSCOPIC NOT IND
[2020-02-26 15:51] LABS: ALANINE AMINOTRANSFERASE 49 U/L (12-78); ALBUMIN 4.3 g/dL (3.4-5.0); ANION GAP 7 mmol/L (5-15); CHLORIDE 106 mmol/L (98-107); CREATININE 0.77 mg/dL (0.55-1.02)
[2020-02-26 15:54] LABS: ALKALINE PHOSPHATASE 150 U/L (45-117); BILIRUBIN,TOTAL 1.3 mg/dL (0.2-1.0); TOTAL PROTEIN 7.9 g/dL (6.4-8.2)
[2020-02-26 15:59] LABS: BASOPHILS % (AUTO) 1 % (0-1); EOSINOPHILS % (AUTO) 1 % (1-7); LYMPHOCYTES % (AUTO) 13 % (22-44); MD NO; MEAN CORPUSCULAR HGB CONC 33.5 g/dL (32.4-35.8); MEAN PLATELET VOLUME 9.7 fL (7.4-10.4); MONOCYTES % (AUTO) 5 % (2-9); NEUTROPHILS % (AUTO) 80 % (42-75); PLATELET COUNT 306 x10^3/uL (130-400); RED BLOOD COUNT 4.49 x10^6/uL (3.82-5.3); RED CELL DISTRIBUTION WIDTH 13.2 % (9.6-15.2)
--- NOTE | 2020-02-26 16:08 | NUR ---
All labs back, chart up for erp review.
--- NOTE | 2020-02-26 16:17 | NUR ---
pt up to bathroom even steady gait.
--- NOTE | 2020-02-26 16:58 | NUR ---
Patient resting, eyes closed. Discussed plan of care with ERP, US ordered by ERP. Patient is aware plan of care.
--- NOTE | 2020-02-26 17:49 | NUR ---
Ultrasound at bedside. Awaiting results.
--- NOTE | 2020-02-26 18:16 | NUR ---
US completed, pt states pain is "not too much" and denies needing pain medication. Pt on monitor Plan of care discussed.
--- NOTE | 2020-02-26 18:45 | NUR ---
Chart up for ERP. US results. Report to Mely RIVERA.
--- NOTE | 2020-02-26 18:49 | NUR ---
bedside report from romina [place]
--- NOTE | 2020-02-26 19:05 | NUR ---
PT SITTING UPRIGHT ON [employer] VSS. PT DENIES ANY NEEDS AT THIS TIME. AWAITING D/C.
[2020-02-26 19:09] VITALS: BP 159/89
== END 2020-02-26 19:45 | disposition home or self-care (01) ==
LOC: ED 15:55
DX: K80.20 Calculus of gallbladder without cholecystitis without obstruction (principal); R11.2 Nausea with vomiting, unspecified; R10.13 Epigastric pain; R42 Dizziness and giddiness; I10 Essential (primary) hypertension; E11.9 Type 2 diabetes mellitus without complications; I45.10 Unspecified right bundle-branch block; Z86.73 Personal history of transient ischemic attack (TIA), and cerebral infarction without residual deficits
CPT/HCPCS: 36415; 74021; 76700; 80053; 81003; 83690; 85025; 93005; 96361; 96374; 96375; 99285; J2405; J7030

== ENCOUNTER → 2020-06-20 | Outpatient (CLI) | payer MEDICAID ==
[~2020-06-20] MED LIST changes: -LISI40TA PO; +LISI40TA9 PO; +REGADENOSON 0.4 MG/5 ML SYRINGE ONE
== END | disposition home or self-care (01) ==
LOC: CFH 08:02
PROVIDERS: ATTEND Internal Medicine Cardiovascular Disease
DX: Z01.810 Encounter for preprocedural cardiovascular examination (principal)
CPT/HCPCS: 78452; 93017; A9502; J2785